=== PATIENT | male | born 1940 | race Caucasian/White ===

== ENCOUNTER → 2016-07-28 | Outpatient (CLI) | payer MEDICARE, BC ==
[2016-07-28 09:43] LABS: CH 30.5; HDW 2.81; HGB 12.4 gm/dL (13.0-17.5); MCH 31.2 pg (25.0-35.0); MCHC 33.5 g/dL (31.0-37.0); MCV 93.2 fL (80.0-100.0); Mean Platelet Volume 7.7; RBC 3.97 m/uL (4.30-5.90); RDW 13.9 % (11.5-15.5); WBC 7.9 k/uL (3.8-10.6)
[2016-07-28 09:59] LABS: ALT 23 U/L (21-72); AST 19 U/L (17-59); Alkaline Phosphatase 46 U/L (38-126); Anion Gap 10 mmol/L; Blood Urea Nitrogen 28 mg/dL (9-20); Calcium 9.3 mg/dL (8.4-10.2); Carbon Dioxide 23 mmol/L (22-30); Chloride 108 mmol/L (98-107); Cholesterol 160 mg/dL (<200); Glucose 78 mg/dL (74-99); HDL Cholesterol 56 mg/dL (40-60); Non-African American GFR(MDRD) >60 (>60 ml/min/1.73 sqM); Potassium 4.5 mmol/L (3.5-5.1); Sodium 141 mmol/L (137-145); Total Bilirubin 0.8 mg/dL (0.2-1.3); Total Protein 6.8 g/dL (6.3-8.2); Triglycerides 55 mg/dL (<150)
[2016-07-28 13:22] LABS: Hemoglobin A1C 4.5 % (4.2-6.1)
== END | disposition home or self-care (01) ==
LOC: LABWHC1 09:20
PROVIDERS: ATTEND Internal Medicine
DX: E11.3213 Type 2 diabetes mellitus with mild nonproliferative diabetic retinopathy with macular edema, bilateral (principal); E11.9 Type 2 diabetes mellitus without complications; E03.9 Hypothyroidism, unspecified; I42.9 Cardiomyopathy, unspecified
CPT/HCPCS: 36415; 80053; 80061; 82043; 83036; 84439; 84443; 85027

== ENCOUNTER → 2016-11-03 | Outpatient (CLI) | payer MEDICARE ==
[2016-11-03 11:10] LABS: CH 30.2; CHCM 34.2; HCT 38.3 % (39.0-53.0); HDW 2.84; HGB 12.7 gm/dL (13.0-17.5); MCH 29.5 pg (25.0-35.0); MCHC 33.2 g/dL (31.0-37.0); Mean Platelet Volume 8.1; RDW 14.7 % (11.5-15.5); WBC 7.1 k/uL (3.8-10.6)
[2016-11-03 11:25] LABS: ALT 24 U/L (21-72); AST 20 U/L (17-59); Alkaline Phosphatase 50 U/L (38-126); Anion Gap 10 mmol/L; Blood Urea Nitrogen 25 mg/dL (9-20); Calcium 9.7 mg/dL (8.4-10.2); Carbon Dioxide 26 mmol/L (22-30); Chloride 104 mmol/L (98-107); Cholesterol 153 mg/dL (<200); Glucose 67 mg/dL (74-99); HDL Cholesterol 59 mg/dL (40-60); Non-African American GFR(MDRD) >60 (>60 ml/min/1.73 sqM); Potassium 4.8 mmol/L (3.5-5.1); Sodium 140 mmol/L (137-145); Total Protein 6.8 g/dL (6.3-8.2)
[2016-11-03 12:33] LABS: Hemoglobin A1C 4.7 % (4.2-6.1)
[2016-11-03 17:13] LABS: Urine Creatinine 37.3 mg/dL
== END | disposition home or self-care (01) ==
LOC: LABWHC1 09:59
PROVIDERS: ATTEND Internal Medicine
DX: E78.5 Hyperlipidemia, unspecified (principal); E03.9 Hypothyroidism, unspecified; E11.9 Type 2 diabetes mellitus without complications
CPT/HCPCS: 36415; 80053; 80061; 82043; 82570; 83036; 84439; 84443; 85027

== ENCOUNTER → 2017-07-07 | Outpatient (CLI) | payer MEDICARE ==
[2017-07-07 10:52] LABS: HCT 38.6 % (39.0-53.0); HGB 13.1 gm/dL (13.0-17.5); MCH 30.2 pg (25.0-35.0); MCHC 33.9 g/dL (31.0-37.0); Mean Platelet Volume 7.8; Platelet Count 178 k/uL (150-450); RBC 4.34 m/uL (4.30-5.90); RDW 14.3 % (11.5-15.5); WBC 6.3 k/uL (3.8-10.6)
[2017-07-07 11:07] LABS: Albumin 4.2 g/dL (3.5-5.0); Calcium 9.7 mg/dL (8.4-10.2); Potassium 4.7 mmol/L (3.5-5.1); Total Bilirubin 0.7 mg/dL (0.2-1.3); Total Protein 6.4 g/dL (6.3-8.2)
[2017-07-07 20:19] LABS: Hemoglobin A1C 4.7 % (4.0-6.0)
== END | disposition home or self-care (01) ==
LOC: LABWHC1 09:58
PROVIDERS: ATTEND Internal Medicine
DX: E78.5 Hyperlipidemia, unspecified (principal); E11.9 Type 2 diabetes mellitus without complications; I10 Essential (primary) hypertension; I42.9 Cardiomyopathy, unspecified; E11.3213 Type 2 diabetes mellitus with mild nonproliferative diabetic retinopathy with macular edema, bilateral
CPT/HCPCS: 36415; 80053; 80061; 83036; 84443; 85027

== ENCOUNTER → 2018-08-10 | Outpatient (CLI) | payer MEDICARE ==
[2018-08-10 11:20] LABS: HCT 36.3 % (39.0-53.0); HGB 12.2 gm/dL (13.0-17.5); MCH 29.5 pg (25.0-35.0); MCHC 33.5 g/dL (31.0-37.0); MCV 88.1 fL (80.0-100.0); Platelet Count 173 k/uL (150-450); RBC 4.12 m/uL (4.30-5.90); RDW 14.9 % (11.5-15.5); WBC 6.6 k/uL (3.8-10.6)
[2018-08-10 16:43] LABS: Albumin 4.3 g/dL (3.80-4.90); Albumin/Globulin Ratio 2.05 (1.60-3.17); Anion Gap 12.9 mmol/L (4.00-12.00); Calcium 9.3 mg/dL (8.7-10.3); Carbon Dioxide 22.1 mmol/L (21.6-31.8); Globulin 2.1 g/dL (1.6-3.3); Potassium 4.3 mmol/L (3.5-5.5); Total Bilirubin 0.6 mg/dL (0.3-1.2); Total Protein 6.4 g/dL (6.2-8.2)
[2018-08-10 19:34] LABS: Hemoglobin A1C 5.4 % (4.0-6.0)
== END | disposition home or self-care (01) ==
LOC: LABWHC1 09:58
PROVIDERS: ATTEND Internal Medicine
DX: E78.5 Hyperlipidemia, unspecified (principal); E03.9 Hypothyroidism, unspecified; E11.9 Type 2 diabetes mellitus without complications; R53.83 Other fatigue
CPT/HCPCS: 36415; 80053; 80061; 83036; 84443; 85027

== ENCOUNTER → 2018-12-15 | Outpatient (CLI) | payer MEDICARE ==
[2018-12-15 11:52] LABS: HCT 33.8 % (39.0-53.0); HGB 11.4 gm/dL (13.0-17.5); MCH 30.7 pg (25.0-35.0); MCHC 33.6 g/dL (31.0-37.0); MCV 91.3 fL (80.0-100.0); Mean Platelet Volume 6.7; Platelet Count 179 k/uL (150-450); RDW 13.6 % (11.5-15.5); WBC 6.3 k/uL (3.8-10.6)
[2018-12-15 16:17] LABS: Albumin 4.4 g/dL (3.80-4.90); Albumin/Globulin Ratio 2.75 (1.60-3.17); Anion Gap 9.1 mmol/L (4.00-12.00); Calcium 9.1 mg/dL (8.7-10.3); Carbon Dioxide 25.9 mmol/L (21.6-31.8); Chol/HDL Ratio 3.19; Globulin 1.6 g/dL (1.6-3.3); LDL Cholesterol,Calculated 88.4 mg/dL (0.0-131.0); Potassium 4.5 mmol/L (3.5-5.5); Total Bilirubin 0.7 mg/dL (0.2-1.2); VLDL Calculation 14.6 mg/dL (5.00-40.00)
[2018-12-15 18:21] LABS: Hemoglobin A1C 4.5 % (4.0-6.0)
== END | disposition home or self-care (01) ==
LOC: LABWHC1 10:07
PROVIDERS: ATTEND Internal Medicine
DX: E78.5 Hyperlipidemia, unspecified (principal); E03.9 Hypothyroidism, unspecified; E11.9 Type 2 diabetes mellitus without complications
CPT/HCPCS: 36415; 80053; 80061; 83036; 84443; 85027

== ENCOUNTER → 2020-07-25 | Outpatient (CLI) | payer MEDICARE ==
--- NOTE | 2020-07-25 08:47 | US ---
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 GLAND SIZE: Right Lobe: 5.7 x 2.5 x 3.0 cm Overall Parenchyma: homogenous Left Lobe: 5.4 x 2.1 x 2.3 cm Overall Parenchyma: heterogeneous Isthmus Thickness: 0.4 cm NODULES RIGHT: # of nodules measured on right: 0 LEFT: # of nodules measured on left: 2 1. 1.3 X 0.8 x 1.4 cm, upper mid, solid or almost completely solid, isoechoic nodule, which is wide r than tall, with ill-defined margins, with macrocalcifications. No prior 2. 1.4 X 1.0 x 1.49 cm, mid lower, mixed cystic and solid, hypoechoic nodule, which is wider than tall, with ill-defined margins, with macrocalcifications. No prior ISTHMUS: # of nodules measured in the isthmus: Bilateral neck scanned, no evidence of lymphadenopathy. Homogeneous slightly prominent right thyroid lobe. More heterogeneous slightly prominent left thyroid lobe with 2 nodules marked by technologist. Nodule 1 and 2 are both TR 4 lesions. IMPRESSION: Ultrasound follow-up at 1, 2, 3, and 5 years. 2017 ACR TI-RADS LEVEL: TR-RADS 4 - Moderately Suspicious: Follow if > 1 cm, FNA if > 1.5 cm *Highest TI-RADS level nodule reported
== END | disposition home or self-care (01) ==
LOC: RADUSWWP 08:03
PROVIDERS: ATTEND Internal Medicine
DX: E06.3 Autoimmune thyroiditis (principal); E04.2 Nontoxic multinodular goiter
CPT/HCPCS: 76536

== ENCOUNTER → 2023-04-13 | Outpatient (CLI) | payer MEDICARE ==
--- NOTE | 2023-04-13 21:49 | US ---
EXAMINATION TYPE: US kidneys/renal and bladder DATE OF EXAM: 04/13/2023 COMPARISON: NONE CLINICAL INDICATION: Male, 83 years old with history of N28.9 DISORDER OF KIDNEY AND URETER, UNSPECIF IED; abn labs EXAM MEASUREMENTS: Right Kidney: 10.9x4.4x4.3 cm Left Kidney: 10.0x5.1x4.8 cm Right Kidney: No hydronephrosis or masses seen Left Kidney: No hydronephrosis or masses seen Bladder: wnl Bilateral Jets seen: Yes exam limited by bowel and body habitus IMPRESSION: 1. Normal renal ultrasound
== END | disposition home or self-care (01) ==
LOC: RADUSWWP 10:46
PROVIDERS: ATTEND Internal Medicine
DX: N28.9 Disorder of kidney and ureter, unspecified (principal)
CPT/HCPCS: 76770

== ENCOUNTER 2023-05-21 05:40 | Day surgery (SDC) | payer MEDICARE ==
[2023-05-11 12:11] VITALS: BMI 26.6
[2023-05-21] MEDS ORDERED: SODIUM CHLORIDE 0.9% 1,000 ML IV SCH ×2 (05:56)
[2023-05-21] MEDS: SODIUM CHLORIDE 0.9% 500 ML IV ONE (06:09)
[2023-05-21 06:37] LABS: Glucose,Whole Blood 83 mg/dL (70-110)
[2023-05-21 06:51] LABS: Basophils # (A) 0.1 k/uL (0-0.2); Basophils % (A) 1 %; Eosinophils # (A) 0.3 k/uL (0-0.7); Eosinophils % (A) 5 %; HCT 37.4 % (39.0-53.0); Lymphocytes % (A) 27 %; MCH 29.3 pg (25.0-35.0); MCHC 32.1 g/dL (31.0-37.0); MCV 91.2 fL (80.0-100.0); Mean Platelet Volume 8.4; Monocytes # (A) 0.5 k/uL (0-1.0); Monocytes % (A) 6 %; Neutrophils # (A) 4.4 k/uL (1.3-7.7); Neutrophils % (A) 59 %; Platelet Count 190 k/uL (150-450); RDW 14.4 % (11.5-15.5); WBC 7.5 k/uL (3.8-10.6)
[2023-05-21 07:14] LABS: African American GFR (CKD) 61 (>60 ml/min/1.73 sqM); Anion Gap 11 mmol/L; Blood Urea Nitrogen 33 mg/dL (9-20); Calcium 9.6 mg/dL (8.4-10.2); Carbon Dioxide 20 mmol/L (22-30); Chloride 108 mmol/L (98-107); Glucose 84 mg/dL (74-99); Non-African American GFR(CKD) 53 (>60 ml/min/1.73 sqM); Potassium 4.9 mmol/L (3.5-5.1); Sodium 139 mmol/L (137-145)
[2023-05-21] MEDS ORDERED: LIDOCAINE 1% INJ 10MG/ML (20 ML MDV) ONE (07:21)
[2023-05-21] MEDS ORDERED: PROPOFOL 10 MG/ML 20 ML VIAL IV ONE (07:22)
[2023-05-21] MEDS ORDERED: MIDAZOLAM 2 MG/2 ML VIAL ONE (07:22)
[2023-05-21] MEDS ORDERED: fentaNYL (PF) 50 MCG/ML 2 ML AMP ONE (07:22)
[2023-05-21 07:35] VITALS: RESP 16; TEMP 97.6
[2023-05-21] MEDS: ceFAZolin 1 GM in SODIUM CHLORIDE 0.9% IRRIG BTL 250 ML IRRIGATION PRN (07:55)
[2023-05-21] MEDS: LIDOCAINE 1% INJ 10MG/ML (20 ML MDV) SQ ONE ×2 (08:08→08:21)
[2023-05-21] MEDS: VANCOMYCIN 1,500 MG in SODIUM CHLORIDE 0.9% 500 ML 500 ML IVPB STA (08:46)
[2023-05-21] MEDS ORDERED: ACETAMINOPHEN TAB 325 MG TAB PO PRN (09:22)
--- NOTE | 2023-05-21 09:38 | P.EPPROC ---
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 Subsequently a generator change was performed in 2010 The device is now at [employer] and this is his third device When I open the pocket the device was encased in a very thick heavily calcified capsule The ICD lead insulation was breached Using gentle blunt dissection with a mosquito clamp, the leads was slowly freed No other breach other than on the ICD lead was noted This was repaired with silicone followed by application of tubing The impedances were stable thresholds were excellent sensing was excellent On account of this defibrillation testing was performed and the DFT was at a below 12.5 J Shock impedance 49 ohms No dropouts
--- NOTE | 2023-05-21 09:48 | P.EPPROC ---
- EP Procedure Note Electrophysiology Procedure Note: Procedure Dual-chamber ICD generator change Indication for the procedure Chronic dual-chamber ICD at [facility] Original indication in 1997 was for secondary prevention of sudden cardiac . Patient experienced sustained VT/VF at that time He has underlying ischemic cardiomyopathy status post coronary artery bypass grafting for multivessel coronary artery disease Final procedures Pocket revision/complete capsulectomy for heavily calcified capsule Repair of the ICD lead insulation breach Dual-chamber ICD generator change Details Patient was brought to the EP lab in a fasting state. Written informed consent was obtained prior to the procedure. The left shoulder area was prepped and draped as a protocol IV antibiotics including IV vancomycin administered Incision made directly over the generator and carried down to the level of the generator. The generator was encased in a heavily calcified, very thick capsule The capsule was carefully opened. It appeared that the original pocket was more subcutaneous with fat beneath the capsule The leads were entrapped and coiled within the calcium With slow gentle blunt dissection the leads were freed An insulation breach was noted in the ICD lead and this was very carefully dissected out from the capsule The pacing sensing and impedance parameters were stable This was repaired with silicone followed by tubing and was secured over it The impedances sensing and pacing threshold of the ICD lead remained stable The old [employer] generator was explanted The new [employer] generator was implanted. This was secured to the muscle with a nonabsorbable suture The antibiotic mesh was placed in the pocket The wound was closed in 3 layers and dressed per protocol Defibrillation level testing was performed to ensure that the ICD lead was functioning appropriately VF was induced and this was adequately and appropriately detected early sensitivity and successfully internally defibrillated with the 12.5 J shock. Charge time 2.1 seconds shock impedance 49 ohms The device was then programmed according to the [employer] programming The patient tolerated procedure well without any acute complications The patient has insisted that he wants to go home today and absolutely does not want to stay in the hospital. He stated he would rather than spend the night in the hospital He will receive 1 more dose of IV antibiotics and will be discharged home and follow-up with Dr. Corrigan in a week
[2023-05-21 10:28] LABS: Glucose,Whole Blood 81 mg/dL (70-110)
[2023-05-21] MEDS: ACETAMINOPHEN IV (For NPO) 1,000 MG in EMPTY BAG 1 BAG IVPB ONE (10:39)
[2023-05-21 16:20] VITALS: BP 134/62; PULSE 65
[2023-05-21] MEDS ORDERED: metFORMIN 500 MG TAB PO SCH (21:00)
[2023-05-21] MEDS ORDERED: NON FORMULARY DRUG (Enalapril 20 MG Tab) PO SCH (21:00)
[2023-05-21] MEDS ORDERED: carvediloL 12.5 MG TAB PO SCH (21:00)
[2023-05-22] MEDS ORDERED: NON FORMULARY DRUG (Metformin Hcl Er 500 MG Tab.Er.24h) PO SCH (09:00)
[2023-05-22] MEDS ORDERED: ROSUVASTATIN CALCIUM 20 MG PO SCH (09:00)
[2023-05-22] MEDS ORDERED: LEVOTHYROXINE 88 MCG TAB PO SCH (09:00)
== END 2023-05-21 12:50 | disposition home or self-care (01) ==
LOC: CATHEP 05:40
PROVIDERS: ATTEND Internal Medicine Clinical Cardiac Electrophysiology
DX: I25.810 Atherosclerosis of coronary artery bypass graft(s) without angina pectoris (principal); I42.9 Cardiomyopathy, unspecified; I10 Essential (primary) hypertension; I65.23 Occlusion and stenosis of bilateral carotid arteries; E78.2 Mixed hyperlipidemia; F17.210 Nicotine dependence, cigarettes, uncomplicated; I47.20 Ventricular tachycardia, unspecified; E11.9 Type 2 diabetes mellitus without complications; Z82.49 Family history of ischemic heart disease and other diseases of the circulatory system; Z79.82 Long term (current) use of aspirin; Z79.84 Long term (current) use of oral hypoglycemic drugs; Z91.018 Allergy to other foods; Z79.899 Other long term (current) drug therapy
CPT/HCPCS: 33218; 33263; 88305; 80048; 85025; C1721; J2250; J3370; J0690; J2001; J3010; J0131; J2704